=== PATIENT | female | born 1985 | race Caucasian/White ===

== ENCOUNTER 2019-10-06 10:26 | Emergency (ER) | payer OTHER, MEDICAID ==
[~2019-10-06] VITALS: Ht 172.7 cm; Wt 61.7 kg
[~2019-10-06 10:26] MED LIST: BETAPACE; COMPAZINE25 M1 RC; HYDROCODON-ACE1 EACH PO; NORCO 5-325 TA1 EACH PO; PHENERGAN 25 MG25 M1 PO; ZOFRAN4 MG PO
[2019-10-06] MEDS ORDERED: TYLENOL WITH CO1 TA1 PO (11:55)
[2019-10-06 12:23] VITALS: BP 111/53
== END 2019-10-06 12:24 | disposition home or self-care (01) ==
LOC: M.ERS 10:26
DX: S93.491A Sprain of other ligament of right ankle, initial encounter (principal); F17.210 Nicotine dependence, cigarettes, uncomplicated; Z90.89 Acquired absence of other organs; X50.0XXA Overexertion from strenuous movement or load, initial encounter; Y93.01 Activity, walking, marching and hiking; Y92.89 Other specified places as the place of occurrence of the external cause; Y99.8 Other external cause status

== ENCOUNTER → 2019-10-20 | Outpatient (CLI) | payer OTHER, MEDICAID ==
[~2019-10-20] MED LIST changes: +TYLENOL WITH CO1 TA1 PO
== END ==
LOC: M.ULTRA 10:30
DX: N64.59 Other signs and symptoms in breast (principal); Z80.3 Family history of malignant neoplasm of breast

== ENCOUNTER 2021-03-20 05:24 | Emergency (ER) | payer OTHER, MEDICAID ==
[~2021-03-20] VITALS: Ht 175.3 cm; Wt 59.0 kg
[2021-03-20] MEDS ORDERED: OLANZAPINE ODT5 MG PO (05:37)
[2021-03-20] MEDS ORDERED: PROPRANOLOL 20M20 M1 PO (05:37)
[2021-03-20] MEDS ORDERED: ROBAXIN100 MG/1 M (05:38)
[2021-03-20] MEDS ORDERED: CEPHALEXIN500 MG PO (06:04)
[2021-03-20] MEDS ORDERED: MUPIROCIN22 GM TOP (06:04)
[2021-03-20 06:10] VITALS: BP 117/72
== END 2021-03-20 06:10 | disposition home or self-care (01) ==
LOC: M.ERS 05:24
DX: R59.1 Generalized enlarged lymph nodes (principal); R21 Rash and other nonspecific skin eruption; L98.8 Other specified disorders of the skin and subcutaneous tissue; F17.210 Nicotine dependence, cigarettes, uncomplicated; Z98.51 Tubal ligation status

== ENCOUNTER → 2021-09-11 | Outpatient (CLI) | payer OTHER, MEDICAID ==
[~2021-09-11] MED LIST changes: +CEPHALEXIN500 MG PO; +MUPIROCIN22 GM TOP; +OLANZAPINE ODT5 MG PO; +PROPRANOLOL 20M20 M1 PO; +ROBAXIN100 MG/1 M
== END ==
LOC: M.RAD 08:42
DX: N64.59 Other signs and symptoms in breast (principal)